=== PATIENT | male | born 1935 | race Caucasian/White ===

== ENCOUNTER → 2019-06-05 | Outpatient (CLI) | payer OTHER ==
[~2019-06-05] VITALS: Ht 175.3 cm; Wt 85.3 kg
[~2019-06-05] MED LIST: ALLOPURINOL 10100 M3 PO; LORAZEPAM 1 MG T1 MG PO; MAXALT MLT ODT10 MG PO; PROTONIX 20 MG20 M1 PO
--- NOTE | 2019-06-05 17:09 | P ---
[facility] [address] [place] [address] PROCEDURE REPORT Name: JAMAL MAZARIEGOS Room #: REG [facility]#: [id number] Admission: 06/05/19 Attend Phys: Pedrito Humphries MD Discharge: Date of : 33 Report #: [id number] THIS REPORT FOR: //name// CC: Lonnie Humphries DATE OF SERVICE: 06/05/2019 OUTPATIENT COLONOSCOPY REPORT BRIEF HISTORY: The patient is an 84-year-old male with a history of colon polyps. PREOPERATIVE DIAGNOSIS: High risk screening due to history of colon polyps. POSTOPERATIVE DIAGNOSES: 1. A 5 x 12 mm proximal flat ascending colon polyp. 2. Focal diverticulitis, descending colon. 3. Diverticulosis coli. MEDICATIONS: Deep sedation with propofol per anesthesia. SPECIMEN: Proximal ascending colon polyp. ESTIMATED BLOOD LOSS: 3 mL. PROCEDURE: Colonoscopy to cecum and terminal ileum with snare polypectomy. FINDINGS: Prior to propofol sedation, procedure of colonoscopy was discussed with the patient as well as potential risks and its complications. He indicates he understands and desires to proceed. DESCRIPTION OF PROCEDURE: With the patient in left lateral decubitus position, digital examination was completed, which revealed no abnormalities. Subsequently, the Olympus video colonoscope was introduced in the rectum, advanced under direct vision to the cecum, done with some difficulty as a very tortuous redundant colon. The cecum was reached, identified by the ileocecal valve and the appendiceal orifice. I could partially see the ileocecal valve. However, due to looping of the scope and redundancy of the colon, we could not cross the ileocecal valve. At that point, the scope was slowly withdrawn and careful circumferential views were obtained. Upon slow withdrawal of the scope, the prep was good. The mucosa was within normal limits, normal vascular pattern, normal light reflex. In the proximal ascending colon, there was a very flat polyp seen. It was about 5 mm in width and probably about 12 mm in length. It was removed by saline assisted snare polypectomy and biopsy forceps. [facility] [address] [place] [address] PROCEDURE REPORT Name: YAIRJAMAL Room #: REG [facility].#: [id number] Admission: 06/05/19 Attend Phys: Pedrito Humphries MD Discharge: Date of : 34 Report #: [id number] polyp was completely removed. There was good hemostasis. The scope was further withdrawn and no additional neoplastic lesions were seen. However, he was noted to have extensive diverticular disease throughout the entire colon consistent with pandiverticulosis coli involving proximal as well as the distal colon, multiple wide mouthed diverticula were seen. In addition, in the descending colon, there was focal diverticulitis with a single diverticulum with surrounding erythema and purulent material. There was no other endoscopic evidence of diverticulitis. The scope was further withdrawn and no additional polyps were seen. Scope was withdrawn in the rectum, no abnormalities were seen. Upon retroflexion, no abnormalities were seen. Scope was withdrawn. The patient tolerated the procedure well. CONDITION OF THE PATIENT UPON DISCHARGE: Following the procedure, the patient drowsy, aroused, conversant and will be discharged to home when fully ambulatory. INSTRUCTIONS TO THE PATIENT AND FAMILY AT THE TIME OF DISCHARGE: We will follow up on the pathology of polyp. However, at this point in life at age 84, the patient is not likely to benefit from continued routine colonoscopy. However, specific problems should arise, colonoscopy could be undertaken for those purposes at that time. <ELECTRONICALLY SIGNED> By: Pedrito Humphries MD 06/05/19 1709 1136 1301 Pedrito Humphries MD /nt
--- NOTE | 2019-06-06 13:07 | PATH ---
[facility] [place] [address] PATHOLOGY RPT PROCEDURE Name: MIKEY MAZARIEGOS Room #: REG [facility] MNat.#: [id number] Admission: 06/05/19 Date of : 34 Discharge: Report #: [id number] Path Case #: [id number] [facility] Accession Number: [id number] . 01 Material submitted: . PART A: stomach - BIOPSY OF GASTRITIS TO R/O H. PYLORI PART B: colon - POLYP AT PROXIMAL ASCENDING COLON. Modifiers: proximal, ascending . 01 Clinical history: . Personal use of NSAIDs Gastritis, hiatus hernia, colon polyps, diverticulosis A. Rule out H. pylori . 02 Diagnosis: A. Stomach, biopsy: - Mild chronic inflammation, nonspecific. - No evidence of Helicobacter pylori on immunoperoxidase stain. . B. Colon, proximal ascending, biopsy: - Adenomatous polyps, two. - One fragment of colonic mucosa with mild hyperplastic changes. (AIEDE:navdeep; 06/06/2019) [facility] 06/06/2019 0934 Local . 02 Electronically signed: . Abimael Cerda MD, Pathologist NPI- [id number] . 01 Gross description: . A. The specimen is received in formalin, labeled "Mikey Mazariegos, BX of gastritis" and consists of multiple fragments of pink-hammond tissue measuring 1.5 x 0.4 x 0.2 cm in aggregate which are entirely submitted in A1. . B. The specimen is received in formalin, labeled "Mikey Mazariegos, polyp at proximal ascending colon" and consists of 3 fragments of pink-hammond tissue measuring between 0.3 x 0.2 cm and 0.6 x 0.5 x 0.4 cm. The largest is inked and bisected and they are entirely submitted in B1. (SDY; 06/05/2019) SYU/SYU 06/05/2019 1609 Local . 02 Pathologist provided ICD-10: K29.50, D12.2 . 02 CPT . 760634, 341224, E41733 Specimen Comment: A courtesy copy of this report has been sent to [phone], [address] [address] PATHOLOGY RPT PROCEDURE Name: MIKEY MAZARIEGOS [facility] [id number] Admission: 06/05/19 Date of : 34 Discharge: Report #: [id number] Path Case #: [id number] Specimen Comment: [id number] Specimen Comment: Report sent to / DR PHILLIPS Specimen Comment: A duplicate report has been generated due to demographic updates. Performed at: [address], [place] [id number] MD Jean Marie Hammer MD Phone: [phone] Performed at: [address] [id number] MD Tsering Slaughter MD Phone: [phone]
--- NOTE | 2019-06-06 14:05 | P ---
[facility] [place] [address] PROCEDURE REPORT Name: JAMAL MAZARIEGOS Room #: REG [facility]#: [id number] Admission: 06/05/19 Attend Phys: Pedrito Humphries MD Discharge: Date of : 34 Report #: [id number] THIS REPORT FOR: //name// CC: Lonnie Humphries OUTPATIENT UPPER ENDOSCOPY REPORT BRIEF HISTORY: The patient is an 84-year-old male with recurrent vomiting of uncertain etiology. He does use nonsteroidals several times weekly. POSTOPERATIVE DIAGNOSES: 1. Erosive antral gastritis. 2. A 3-4 cm sliding type hiatus hernia. MEDICATIONS: Deep sedation with propofol per anesthesia. SPECIMEN: Biopsies of gastritis. ESTIMATED BLOOD LOSS: 3 mL. PROCEDURE: EGD with biopsy. FINDINGS: Prior to propofol sedation, procedure of upper endoscopy discussed with the patient as well as potential risks and its complications. He indicates he understands and desires to proceed. DESCRIPTION OF PROCEDURE: With the patient in left lateral decubitus position, the Olympus video endoscope was inserted into the cervical esophagus under direct vision without difficulty. Examination of this organ through its entire length revealed normal esophageal mucosa down the squamocolumnar junction. Squamocolumnar junction was inspected and noted to be unremarkable. No ulcers, erosions or Rojo mucosa was seen. The scope was advanced and a 3-4 cm sliding type hiatus hernia was encountered. Mucosa and the hernia were normal. There was no retained material within the hernia. The outlet into the abdomen and the intra-abdominal portion of the stomach was fairly wide and now there was no evidence of obstruction. Examination of the distal stomach revealed intact mucosa. However, there were multiple erosions in the antrum. No ulcers were seen. The erosions were likely secondary to his use of nonsteroidals. Upon retroflexion, the hiatus hernia was seen. No other abnormalities were seen. No mass lesions were seen. The pylorus was unremarkable. Duodenal bulb was unremarkable. Postbulbar duodenal sweep down to the second portion was noted to be unremarkable. At that point, the scope was slowly withdrawn and careful circumferential views confirmed the above findings. The patient tolerated the procedure well. [facility] [address] [place] [address] PROCEDURE REPORT Name: JAMAL MAZARIEGOS Room #: [facility]#: [id number] Admission: 06/05/19 Attend Phys: Pedrito Humphries MD Discharge: Date of : 34 Report #: [id number] CONDITION OF THE PATIENT UPON DISCHARGE: Following procedure, the patient was drowsy. He was then prepared for colonoscopy. INSTRUCTIONS TO THE PATIENT AND FAMILY AT THE TIME OF DISCHARGE: He has erosions. He does use nonsteroidals. He has been on pantoprazole 20 mg daily. We will have him increase to 40 mg daily. He reports that intermittently he will vomit food a couple of hours after eating. There has been no hematemesis. No history of diabetes. He denies typical symptoms of early satiety. However, we will obtain a gastric emptying study for further evaluation. Proceed with colonoscopy at this time. <ELECTRONICALLY SIGNED> By: Pedrito Humphries MD 06/06/19 1405 1048 1143 Pedrito Humphries MD /nt
== END | disposition home or self-care (01) ==
LOC: GI 09:34
DX: Z12.11 Encounter for screening for malignant neoplasm of colon (principal); D12.2 Benign neoplasm of ascending colon; K57.30 Diverticulosis of large intestine without perforation or abscess without bleeding; K29.50 Unspecified chronic gastritis without bleeding; K44.9 Diaphragmatic hernia without obstruction or gangrene; G43.909 Migraine, unspecified, not intractable, without status migrainosus; K21.9 Gastro-esophageal reflux disease without esophagitis; M10.9 Gout, unspecified; Z86.010 Personal history of colon polyps; Z88.8 Allergy status to other drugs, medicaments and biological substances; Z79.899 Other long term (current) drug therapy
CPT/HCPCS: 62110; 62900